=== PATIENT | male | born 2000 ===

== ENCOUNTER 2018-12-03 11:32 | Emergency (ER) | payer OTHER ==
--- OUTSIDE RECORDS SUMMARY | 2018-12-03 11:39 | XMS REPORT | Summary of Care ---
:2000 Author Organization [facility] Address [address] [place] [address] Care Team Providers Name Role Phone Jony Shaikh DO Primary Care Provider Reason for Visit Reason Comments Physical here for school CPE ([facility]); denies any complaints at this time Encounter Details Date Type Department Care Team Description 10/11/2018 Office Visit [facility] Jony Shaikh DO Routine general medical examination at a health care facility (Primary Dx); Practice [address] [facility] Asthma, well controlled, unspecified asthma severity, unspecified whether persistent [address] [place] [address] [place] [address] [phone] Allergies No Known Allergiesdocumented as of this encounter (statuses as of 10/11/2018) Medications Medication Sig Dispensed Refills Start Date End Date Status albuterol HFA Take 2 Puffs by 1 Inhaler 5 09/02/2018 Active (VENTOLIN) 108 inhalation (90 Base) EVERY FOUR MCG/ACT HOURS NEEDED Inhalation Aero (shortness of SolnIndications: breath, cough Asthma, or wheeze). unspecified asthma severity, unspecified whether complicated, unspecified whether persistent fluticasone Take 1 Puff by 1 Inhaler 3 10/11/2018 Active (FLOVENT) 220 inhalation MCG/ACT TWICE DAILY. Inhalation AerosolIndicatio ns: Asthma, well controlled, unspecified asthma severity, unspecified whether persistent fluticasone Take 1 Puff by 1 Inhaler 0 09/02/2018 Discontinued (FLOVENT) 220 inhalation 9 (Reorder) MCG/ACT TWICE DAILY. Inhalation AerosolIndicatio ns: Asthma, unspecified asthma severity, unspecified whether complicated, unspecified whether persistent documented as of this encounter (statuses as of 10/11/2018) Active Problems Problem Noted Date Asthma documented as of this encounter (statuses as of 10/11/2018) Immunizations Name Administration Dates Next Due HPV 9 10/11/2018 Human Papillomavirus 05/29/2013, 05/11/2012 Influenza (IM) Preservative Free 10/11/2018 PNEUMOCOCCAL POLYSACCHARIDE VACCINE 09/13/2017 documented as of this encounter Social History Tobacco Use Types Packs/Day Years Used Date Never Smoker Smokeless Tobacco: Never Used Alcohol Use Drinks/Week oz/Week Comments No Sex Assigned at Date Recorded Not on file Job Start Date Occupation Industry Not on file Not on file Not on file Travel History Travel Start Travel End No recent travel history available. documented as of this encounter Last Filed Vital Signs Vital Sign Reading Time Taken Comments Blood Pressure 138/68 10/11/2018 10:02 AM EDT Pulse 50 10/11/2018 10:02 AM EDT Temperature - - Respiratory Rate - - Oxygen Saturation 97% 10/11/2018 10:02 AM EDT Inhaled Oxygen Concentration - - Weight 90.6 kg (199 lb 12.8 oz) 10/11/2018 10:02 AM EDT Height 175.3 cm (5' 9") 10/11/2018 10:02 AM EDT Body Mass Index 29.51 10/11/2018 10:02 AM EDT documented in this encounter Progress Notes Jony Shaikh, DO - 10/11/2018 10:00 AM EDT PATIENT: Sukh Slade : 2000 DATE OF SERVICE: 10/11/2018 CHIEF COMPLAINT: Chief Complaint Patient presents with Physical here for school CPE ([facility]); denies any complaints at this time Subjective HISTORY OF PRESENT ILLNESS: Sukh Slade is a 18-y.o. male. HPI Patient is here for physical today No smoking No chewing tobacco No excess alcohol intake No recreational drug use No depression Sexually active and monogamous Exercise: few times lifting in a week Eating habits: trying to do portion control and losing weight to get to ideal weight Body mass index is 29.51 kg/m. Asthma well controlled with flovent added last visit Not using ventolin Past Medical History: Diagnosis Date Asthma History reviewed. No pertinent family history. Current Outpatient Medications Medication Sig albuterol HFA (VENTOLIN) 108 (90 Base) MCG/ACT Inhalation Aero Soln Take 2 Puffs by inhalation EVERY FOUR HOURS NEEDED (shortness of breath, cough or wheeze). fluticasone (FLOVENT) 220 MCG/ACT Inhalation Aerosol Take 1 Puff by inhalation TWICE DAILY. No current facility-administered medications for this visit. No Known Allergies Social History Socioeconomic History Marital status: Single Spouse name: Not on file Number of children: Not on file Years of education: Not on file Highest education level: Not on file Occupational History Not on file Social Needs Financial resource strain: Not on file Food insecurity: Worry: Not on file Inability: Not on file Transportation needs: Medical: Not on file Non-medical: Not on file Tobacco Use Smoking status: Never Smoker Smokeless tobacco: Never Used Substance and Sexual Activity Alcohol use: No Drug use: No Sexual activity: Yes Partners: Female control/protection: Condom Lifestyle Physical activity: Days per week: Not on file Minutes per session: Not on file Stress: Not on file Relationships Social connections: Talks on phone: Not on file Gets together: Not on file Attends mu-ism service: Not on file Active member of club or organization: Not on file Attends meetings of clubs or organizations: Not on file Relationship status: Not on file Intimate partner violence: Fear of current or ex partner: Not on file Emotionally abused: Not on file Physically abused: Not on file Forced sexual activity: Not on file Other Topics Concern Not on file Social History Narrative [employer] Over the last 2 weeks, have you been feeling down, depressed, anxious, or hopeless?: 0 Over the past 2 weeks, have you felt little interest or pleasure in doing things ?: 0 REVIEW OF SYSTEMS: Review of Systems Constitutional: Negative for chills, diaphoresis, fever, malaise/fatigue and weight loss. HENT: Negative for congestion, ear discharge, ear pain, sinus pain and sore throat. Eyes: Negative for blurred vision. Respiratory: Negative for cough, hemoptysis, sputum production, shortness of breath and wheezing. Cardiovascular: Negative for chest pain, palpitations, orthopnea, claudication, leg swelling and PND. Gastrointestinal: Negative for abdominal pain, blood in stool, constipation, diarrhea, melena, nausea and vomiting. Genitourinary: Negative for dysuria, flank pain, frequency, hematuria and urgency. Musculoskeletal: Negative for joint pain and neck pain. Skin: Negative for itching and rash. Neurological: Negative for dizziness, sensory change, speech change, focal weakness, loss of consciousness, weakness and headaches. Endo/Heme/Allergies: Negative for polydipsia. Psychiatric/Behavioral: Negative for depression and substance abuse. The patient is not nervous/anxious. Objective PHYSICAL EXAM: VITALS: BP 138/68 (BP Location: Left arm, Patient Position: Sitting) | Pulse 50 | Ht 5' 9" (1.753m) | Wt 199 lb 12.8 oz (90.6 kg) | SpO2 97% | BMI 29.51 kg/m Body mass index is 29.51 kg/m. Physical Exam Constitutional: He is oriented to person, place, and time. He appears well- developed and well-nourished. No distress. HENT: Head: Normocephalic and atraumatic. Nose: Nose normal. Mouth/Throat: No oropharyngeal exudate. Eyes: Pupils are equal, round, and reactive to light. Conjunctivae are normal. Right eye exhibits nodischarge. Left eye exhibits no discharge. No scleral icterus. Neck: Normal range of motion. Neck supple. No tracheal deviation present. No thyromegaly present. Cardiovascular: Normal rate and regular rhythm. Pulmonary/Chest: Effort normal and breath sounds normal. No stridor. No respiratory distress. He hasno wheezes. He has no rales. Abdominal: Soft. He exhibits no distension and no mass. There is no tenderness. There is no rebound and no guarding. Musculoskeletal: Normal range of motion. Lymphadenopathy: He has no cervical adenopathy. Right: No supraclavicular adenopathy present. Left: No supraclavicular adenopathy present. Neurological: He is alert and oriented to person, place, and time. He exhibits normal muscle tone. Skin: Skin is warm and dry. He is not diaphoretic. No pallor. Psychiatric: He has a normal mood and affect. Judgment and thought content normal. ASSESSMENT / IMPRESSION: ICD-9-CM ICD-10-CM 1. Routine general medical examination at a health care facility V70.0 Z00.00 CA HPV 9 2. Asthma, well controlled, unspecified asthma severity, unspecified whether persistent 493.90 J45.909 fluticasone (FLOVENT) 220 MCG/ACT Inhalation Aerosol Continue flovent If use of ventolin 2x or more in a week, contact me Plan Recommend 150 minutes of cardio a week Half the lunch and dinner meals should consist of vegetables. Don't count corn, potatoes and peas asyour vegetables Continue to stay away from smoking, excess alcohol or any reactional drug use. Author: Jony Shaikh DO 10/11/2018 13:31 documented in this encounter Plan of Treatment Health Maintenance Due Date Last Done Comments INFLUENZA VACCINE (#1) 2018 11/09/2017, 11/23/2016, 11/26/2014 DEPRESSION SCREENING 10/12/2019 10/11/2018 HIV SCREENING 10/12/2019 Postponed from 2013 (Patient refused) HPV IMMUNIZATION SERIES Completed 05/29/2013, 05/11/2012 PNEUMOCOCCAL 0-64 YRS Completed 09/13/2017 MENINGOCOCCAL VACCINE IMM Aged Out No longer eligible based on patient's age to complete this topic documented as of this encounter Goals Goal Patient Goal Associated Recent Patient-Stated? Author Type Problems Progress Keep immunizations Lifestyle No Jony Shaikh DO Note: This is an individualized lifestyle goal for Sukh Slade: Please be sure to keep up-to-date on recommended immunizations. For example, this would include a yearly influenza vaccine. Immunization status can be seen by looking at the Health Maintenance sections of your [facility], Plan of Care, and any After Visit Summaries. documented as of this encounter Results Not on filedocumented in this encounter Visit Diagnoses Diagnosis Routine general medical examination at a health care facility - Primary Asthma, well controlled, unspecified asthma severity, unspecified whether persistent documented in this encounter Insurance Payer Benefit Plan / Subscriber ID Effective Dates Phone Address Type Group [employer] [facility] xxxxxxxxxx 2012-Present [employer] [phone] [id number] [facility] (Home) [place] [id number] documented as of this encounter
[2018-12-03 11:45] VITALS: BP 122/76
--- NOTE | 2018-12-03 12:02 | UC ---
Lower Extremity/Ankle HPI - HPI Summary HPI Summary: The patient is a 18-year-old male that injured his left great toe at work today. He was cutting a sheet of [employer] board and fell on his foot. His toe is bleeding. He states his tetanus is up-to-date. - History of Current Complaint Chief Complaint: UCLowerExtremity Stated Complaint: FOOT INJURY Time Seen by Provider: 12/03/18 11:46 Hx Obtained From: Patient Onset/Duration: Sudden Onset Severity Initially: Moderate Severity Currently: Moderate Pain Intensity: 5 Pain Scale Used: 0-10 Numeric Aggravating Factor(s): Ambulation Alleviating Factor(s): Rest Able to Bear Weight: Yes Related History: Occupational Injury Feet (Multiple View): 1 - 100% subungual hematoma /nail loose/scant bleeding from base of toe - Allergies/Home Medications Allergies/Adverse Reactions: Allergies Allergy/AdvReac Type Severity Reaction Status Date / Time No Known Allergies Allergy Verified 12/03/18 11:45 Home Medications: Home Medications Fluticasone HFA 220 mcg(NF) [Flovent Hfa 220 Mcg(NF)] 1 puff INH DAILY 12/03/18 [History Confirmed 12/03/18] PMH/Surg Hx/FS Hx/Imm Hx Previously Healthy: Yes - Surgical History Surgical History: Yes Surgery Procedure, Year, and Place: right arm - Family History Known Family History: Positive: Hypertension - Social History Alcohol Use: None Substance Use Type: None Smoking Status (MU): Never Smoked Tobacco Review of Systems All Other Systems Reviewed And Are Negative: Yes Constitutional: Positive: Negative Skin: Positive: Bruising Eyes: Positive: Negative ENT: Positive: Negative Respiratory: Positive: Negative Cardiovascular: Positive: Negative Gastrointestinal: Positive: Negative Genitourinary: Positive: Negative Motor: Positive: Negative Neurovascular: Positive: Negative Musculoskeletal: Positive: Arthralgia - left great toe ip joint Neurological: Positive: Negative Psychological: Positive: Negative Physical Exam Triage Information Reviewed: Yes Appearance: Well-Appearing, No Pain Distress, Well-Nourished Vital Signs: Initial Vital Signs Temp 98.6 F 12/03/18 11:42 Pulse 77 10/19/19 11:42 Resp 16 12/03/18 11:42 BP 122/76 12/03/18 11:42 Pulse Ox 100 12/03/18 11:42 Vital Signs Reviewed: Yes Eyes: Positive: Conjunctiva Clear ENT: Positive: Hearing grossly normal. Negative: Nasal congestion, Nasal drainage, Trismus, Muffled voice, Hoarse voice Dental Exam: Normal Neck: Positive: Supple Respiratory: Positive: Lungs clear, Normal breath sounds, No respiratory distress, No accessory muscle use Cardiovascular: Positive: RRR Musculoskeletal: Positive: ROM Intact, Other: - see image Neurological: Positive: Alert Psychological Exam: Normal Skin Exam: Other - see image Diagnostics - Radiology No standard instances Radiology Interpretation Completed By: Radiologist Summary of Radiographic Findings: left great toe /swelling/no fx Lower Extremity Course/Dx - Differential Dx/Diagnosis Provider Diagnosis: Subungual hematoma of great toe of left foot Discharge ED - Sign-Out/Discharge Documenting (check all that apply): Patient Departure All imaging exams completed and their final reports reviewed: Yes - Discharge Plan Condition: Stable Disposition: HOME Patient Education Materials: Subungual Hematoma (ED), Post Surgical Shoe (ED) Forms: *Work Release Referrals: Casey Padilla MD [Medical Doctor] - If Needed - Billing Disposition and Condition Condition: STABLE Disposition: Home
[2018-12-03] MEDS ORDERED: Ibuprofen TAB* 600 MG PO ONE (12:36)
== END 2018-12-03 12:40 | disposition home or self-care (01) ==
LOC: UCEAST 11:32
DX: S90.212A Contusion of left great toe with damage to nail, initial encounter (principal); W20.8XXA Other cause of strike by thrown, projected or falling object, initial encounter; Y93.89 Activity, other specified; Y92.9 Unspecified place or not applicable; Y99.0 Civilian activity done for income or pay
CPT/HCPCS: 99203; A9270-GY; G0463